=== PATIENT | male | born 1935 | race Caucasian/White ===

== ENCOUNTER 2018-03-15 13:56 | Emergency (ER) | payer MEDICARE, BC ==
[~2018-03-15] VITALS: Ht 185.4 cm; Wt 38.6 kg
[~2018-03-15 13:56] MED LIST: ACET-2119 PO; ASPI-1265 PO; ATOR10TA87 PO; FINA5TAB11 PO; FLO0.4C PO; LISI-600 PO; MESA800T PO; METF500T PO; METO-539 PO; PANT40TA39 PO; POLY17PO10 PO
[2018-03-15] MEDS ORDERED: normal saline 1000ml 1,000 ML IV ONE (14:40)
[2018-03-15 14:49] LABS: BASOPHILS % (AUTO) 0.3 % (0-1); EOSINOPHILS % (AUTO) 0.7 % (0-6); HEMATOCRIT 34.7 % (42.0-52.0); HEMOGLOBIN 11.7 g/dl (14.0-17.9); LYMPHOCYTES # (AUTO) 0.9 X10'3 (1.1-4.8); MEAN CORPUSCULAR HEMOGLOBIN 29.2 PG (27.0-31.0); MEAN CORPUSCULAR HGB CONC 33.6 % (33.0-36.5); MEAN CORPUSCULAR VOLUME 86.8 FL (78-98); MEAN PLATELET VOLUME 7.3 FL (7.4-10.4); MONOCYTES # (AUTO) 0.5 X10'3 (0-0.9); MONOCYTES % (AUTO) 8.5 % (2-12); NEUTROPHILS # (AUTO) 4.8 X10'3 (1.8-7.7); NEUTROPHILS % (AUTO) 76.5 % (42-75); PLATELET COUNT 279 X10'3 (140-440); RED CELL DISTRIBUTION WIDTH 16.6 % (11.5-14.5); WHITE BLOOD COUNT 6.2 X10'3 (4.5-11.0)
[2018-03-15 14:53] LABS: ALANINE AMINOTRANSFERASE 18 U/L (12-78); ALBUMIN 3.6 G/DL (3.4-5.0); ALBUMIN/GLOBULIN RATIO 0.9 (1.1-1.5); ALKALINE PHOSPHATASE 84 IU/L (46-116); ANION GAP 9 (8-16); ASPARTATE AMINO TRANSFERASE 14 U/L (10-37); BILIRUBIN,TOTAL 0.6 MG/DL (0.1-1.0); BLOOD UREA NITROGEN 13 MG/DL (7-18); BUN/CREATININE RATIO 11.7 (5.4-32.0); CALCIUM 9.3 MG/DL (8.5-10.1); CHLORIDE 94 MMOL/L (99-107); CREATININE 1.11 MG/DL (0.60-1.10); GLUCOSE 138 MG/DL (70-104); SODIUM 129 MMOL/L (135-145); TOTAL CARBON DIOXIDE 26.5 MMOL/L (24-32); TOTAL PROTEIN 7.7 G/DL (6.4-8.2); eGFR 63 ML/MIN
[2018-03-15 15:21] LABS: CLARITY,URINE CLEAR (Clear); COLOR,URINE STRAW (Yellow); GLUCOSE, URINE NEGATIVE (Neg); KETONES,URINE NEGATIVE (Neg); LEUKOCYTE ESTERASE ,URINE NEGATIVE (Neg); NITRITES, URINE NEGATIVE (Neg); OCCULT BLOOD,URINE NEGATIVE (Neg); PH,URINE 6.5 (4.8-8.0); PROTEIN,URINE NEGATIVE (Neg); UROBILINOGEN,URINE 0.2 E.U/dL (0.2-1.0)
[2018-03-15 15:26] LABS: UA COLLECTION TYPE CLN CATCH MIDSTREAM
[2018-03-15 16:18] VITALS: BP 145/76
== END 2018-03-15 16:18 | disposition home or self-care (01) ==
LOC: ER 13:56
DX: R55 Syncope and collapse (principal); R53.1 Weakness; I25.10 Atherosclerotic heart disease of native coronary artery without angina pectoris; K21.9 Gastro-esophageal reflux disease without esophagitis; E11.9 Type 2 diabetes mellitus without complications; Z95.1 Presence of aortocoronary bypass graft; Z88.5 Allergy status to narcotic agent; Z79.82 Long term (current) use of aspirin; Z79.84 Long term (current) use of oral hypoglycemic drugs; Z79.899 Other long term (current) drug therapy
CPT/HCPCS: 36415; 80053; 81003; 85025; 93005; 96360; 99285; J7030

== ENCOUNTER 2018-08-03 23:23 | Emergency (ER) | payer MEDICARE, BC ==
[~2018-08-03] VITALS: Ht 185.4 cm; Wt 77.0 kg
[2018-08-04 00:01] VITALS: BP 164/101
[2018-08-04] MEDS ORDERED: CEPH-572 PO (00:24)
[2018-08-04] MEDS ORDERED: tetanus & diphtheria toxoid (Td) vaccine 0.5ml IMVAC ONE (00:25)
[2018-08-04] MEDS ORDERED: TETanus/Pertussis (Acell)/Diphther VAC/PF (Tdap-Adult) 0.5ml syringe IMVAC ONE (00:30)
== END 2018-08-04 00:45 | disposition home or self-care (01) ==
LOC: ER 23:24
DX: S61.210A Laceration without foreign body of right index finger without damage to nail, initial encounter (principal); I25.10 Atherosclerotic heart disease of native coronary artery without angina pectoris; K21.9 Gastro-esophageal reflux disease without esophagitis; E11.9 Type 2 diabetes mellitus without complications; Z95.1 Presence of aortocoronary bypass graft; Z88.5 Allergy status to narcotic agent; Z79.82 Long term (current) use of aspirin; Z79.899 Other long term (current) drug therapy; W23.0XXA Caught, crushed, jammed, or pinched between moving objects, initial encounter; Y93.89 Activity, other specified; Y92.89 Other specified places as the place of occurrence of the external cause; Y99.9 Unspecified external cause status
CPT/HCPCS: 12001; 73130; 90471; 90715; 99283

== ENCOUNTER 2019-06-02 06:35 | Emergency (ER) | payer BC, MEDICARE ==
[~2019-06-02] VITALS: Ht 188 cm; Wt 69.0 kg
[2019-06-02] MEDS ORDERED: LOSA25TA96 PO (07:10)
[2019-06-02] MEDS ORDERED: MONT10TA24 PO (07:12)
[2019-06-02] MEDS ORDERED: AMOX-580 PO (07:13)
[2019-06-02] MEDS ORDERED: ALPR-624 PO (07:14)
[2019-06-02] MEDS ORDERED: ASCO500C15 PO (07:15)
[2019-06-02] MEDS ORDERED: CHOL10002 PO (07:16)
[2019-06-02] MEDS ORDERED: CA C1TAB86 PO (07:17)
[2019-06-02] MEDS ORDERED: ADV50250 IH (07:19)
[2019-06-02 07:20] VITALS: BP 182/94
[2019-06-02] MEDS ORDERED: POLY17PO10 PO (07:20)
[2019-06-02] MEDS ORDERED: fluconazole 150mg tablet PO ONE (07:40)
== END 2019-06-02 07:49 | disposition home or self-care (01) ==
LOC: ER 06:36
DX: B37.0 Candidal stomatitis (principal); T36.0X5A Adverse effect of penicillins, initial encounter; R19.7 Diarrhea, unspecified; R11.0 Nausea; I25.10 Atherosclerotic heart disease of native coronary artery without angina pectoris; K21.9 Gastro-esophageal reflux disease without esophagitis; E11.9 Type 2 diabetes mellitus without complications; F41.9 Anxiety disorder, unspecified; Z95.1 Presence of aortocoronary bypass graft; Z88.5 Allergy status to narcotic agent; Z79.2 Long term (current) use of antibiotics; Z79.82 Long term (current) use of aspirin; Z79.84 Long term (current) use of oral hypoglycemic drugs; Z79.899 Other long term (current) drug therapy; Y92.89 Other specified places as the place of occurrence of the external cause
CPT/HCPCS: 99282

== ENCOUNTER 2021-02-14 19:19 | Emergency (ER) | payer BC ==
[~2021-02-14] VITALS: Ht 188 cm; Wt 81.0 kg
[~2021-02-14 19:19] MED LIST changes: +ADV50250 IH; +ALPR-624 PO; +AMOX-580 PO; +ASCO500C18 PO; +CA C1TAB86 PO; +CHOL10002 PO; -LISI-600 PO; +LOSA25TA96 PO; -MESA800T PO; -METO-539 PO; +MONT10TA32 PO
[2021-02-15] MEDS ORDERED: AMOX-14 PO (00:03)
--- NOTE | 2021-02-15 00:15 | NUR ---
pravin was being discahrged, and as he walked out of [email or web address] ED,he fell.Patient is on blood thinnners.
[2021-02-15 00:19] VITALS: BP 173/69
== END 2021-02-15 01:09 | disposition home or self-care (01) ==
LOC: ER 19:19
DX: J32.9 Chronic sinusitis, unspecified (principal); I25.10 Atherosclerotic heart disease of native coronary artery without angina pectoris; K21.9 Gastro-esophageal reflux disease without esophagitis; E11.9 Type 2 diabetes mellitus without complications; F41.9 Anxiety disorder, unspecified; Z98.890 Other specified postprocedural states; Z88.5 Allergy status to narcotic agent; Z79.2 Long term (current) use of antibiotics; Z79.82 Long term (current) use of aspirin; Z79.899 Other long term (current) drug therapy
CPT/HCPCS: 70450; 72125; 82948; 93005; 99285

== ENCOUNTER 2021-02-17 11:43 | Emergency (ER) | payer BC ==
[~2021-02-17] VITALS: Ht 188 cm; Wt 81.8 kg
[~2021-02-17 11:43] MED LIST changes: +AMOX-14 PO
[2021-02-17 12:49] VITALS: BP 160/71
[2021-02-17 13:19] LABS: BASOPHILS % (AUTO) 0.3 % (0-1); EOSINOPHILS # (AUTO) 0.1 X10'3 (0-0.9); EOSINOPHILS % (AUTO) 1.1 % (0-6); HEMATOCRIT 39.3 % (42.0-52.0); HEMOGLOBIN 13.4 g/dl (14.0-17.9); LYMPHOCYTES # (AUTO) 0.9 X10'3 (1.1-4.8); LYMPHOCYTES % (AUTO) 13.7 % (21-51); MEAN CORPUSCULAR HEMOGLOBIN 31.7 PG (27.0-31.0); MEAN PLATELET VOLUME 6.7 FL (7.4-10.4); MONOCYTES # (AUTO) 0.6 X10'3 (0-0.9); MONOCYTES % (AUTO) 9.3 % (2-12); NEUTROPHILS # (AUTO) 5.1 X10'3 (1.8-7.7); NEUTROPHILS % (AUTO) 75.6 % (42-75); PLATELET COUNT 298 X10'3 (140-440); RED BLOOD COUNT 4.22 X10'6 (4.70-6.10); RED CELL DISTRIBUTION WIDTH 14.4 % (11.5-14.5); WHITE BLOOD COUNT 6.8 X10'3 (4.5-11.0)
[2021-02-17 13:34] LABS: ALANINE AMINOTRANSFERASE 22 U/L (12-78); ALBUMIN 4.3 G/DL (3.4-5.0); ALKALINE PHOSPHATASE 94 IU/L (46-116); ANION GAP 11 (8-16); ASPARTATE AMINO TRANSFERASE 19 U/L (10-37); BILIRUBIN,TOTAL 0.9 MG/DL (0.1-1.0); BLOOD UREA NITROGEN 13 MG/DL (7-18); BUN/CREATININE RATIO 14.4 (5.4-32.0); CALCIUM 9.8 MG/DL (8.5-10.1); CHLORIDE 89 MMOL/L (99-107); GLUCOSE 125 MG/DL (70-104); POTASSIUM 4.2 MMOL/L (3.5-5.1); SODIUM 128 MMOL/L (135-145); TOTAL CARBON DIOXIDE 27.7 MMOL/L (24-32); TOTAL PROTEIN 8.5 G/DL (6.4-8.2); eGFR 80 ML/MIN
== END 2021-02-17 14:21 | disposition home or self-care (01) ==
LOC: ER 11:44
DX: F07.81 Postconcussional syndrome (principal); I25.10 Atherosclerotic heart disease of native coronary artery without angina pectoris; K21.9 Gastro-esophageal reflux disease without esophagitis; E11.9 Type 2 diabetes mellitus without complications; Z95.5 Presence of coronary angioplasty implant and graft; Z88.8 Allergy status to other drugs, medicaments and biological substances; Z79.82 Long term (current) use of aspirin; Z79.899 Other long term (current) drug therapy
CPT/HCPCS: 36415; 80053; 85025; 93005; 99284